=== PATIENT | male | born 1985 | race Caucasian/White ===

== ENCOUNTER 2020-08-22 16:43 | Emergency (ER) | payer OTHER ==
--- NOTE | 2020-08-22 17:15 | EDM.PDOC ---
ED HPI GENERAL MEDICAL PROBLEM - General Chief Complaint: Laceration Stated Complaint: CUT R RING FINGER Time Seen by Provider: 08/22/20 17:00 Source of Information: Reports: Patient History Limitations: Reports: No Limitations - History of Present Illness INITIAL COMMENTS - FREE TEXT/NARRATIVE: 34 YO WM PRESENTS TO ER WITH LACERATION TO RIGHT RING FINGER FROM A [employer] AT WORK. PT REPORTS HE ACCIDENTALLY GOT HIS FINGER UNDERNEATH A FIXED EN[employer] IN[employer]CTOR BLADE CAUSING A 4CM LACERATION TO VOLAR SURFACE OF RIGHT RING FINGER. PT DENIES SIGNIFICANT PAIN, NO FUNCTIONAL DEFICIT AND BLEEDING WAS WELL CONTROLLED WITH PRESSURE. Onset: Today Location: Reports: Upper Extremity, Right Quality: Reports: Ache Severity: Mild Improves with: Reports: None Worsens with: Reports: Movement Associated Symptoms: Reports: No Other Symptoms Right Finger-Ring Pain Score (Numeric/FACES): 0 - Related Data Allergies Allergy/AdvReac Type Severity Reaction Status Date / Time No Known Drug Allergies Allergy Other Verified 08/22/20 16:55 Past Medical History HEENT History: Reports: None Cardiovascular History: Reports: None Respiratory History: Reports: None Gastrointestinal History: Reports: None Other Genitourinary History: testicle removed Musculoskeletal History: Reports: None Neurological History: Reports: None Psychiatric History: Reports: None Endocrine/Metabolic History: Reports: None Hematologic History: Reports: None Immunologic History: Reports: None Dermatologic History: Reports: None - Infectious Disease History Infectious Disease History: Reports: Chicken Pox - Past Surgical History Head Surgeries/Procedures: Reports: None Endocrine Surgical History: Reports: None Neurological Surgical History: Reports: None Social & Family History - Family History Family Medical History: No Pertinent Family History - Tobacco Use Tobacco Use Status *Q: Never Tobacco User - Caffeine Use Caffeine Use: Reports: Soda Caffeine Use Comment: 2 times a week - Alcohol Use Days Per Week of Alcohol Use: 3 Number of Drinks Per Day: 6 Total Drinks Per Week: 18 - Recreational Drug Use Recreational Drug Use: No ED ROS GENERAL - Review of Systems Review Of Systems: See Below Constitutional: Reports: No Symptoms Respiratory: Reports: No Symptoms Cardiovascular: Reports: No Symptoms Endocrine: Reports: No Symptoms GI/Abdominal: Reports: No Symptoms : Reports: No Symptoms Musculoskeletal: Reports: No Symptoms Skin: Reports: Wound (4CM LACERATION TO RIGHT RING FINGER) Neurological: Reports: No Symptoms Psychiatric: Reports: No Symptoms Hematologic/Lymphatic: Reports: No Symptoms ED EXAM, SKIN/RASH Exam: See Below Exam Limited By: No Limitations General Appearance: Alert, WD/WN, No Apparent Distress Eye Exam: Bilateral Eye: EOMI, PERRL Head: Atraumatic, Normocephalic Neck: Normal Inspection, Supple, Non-Tender, Full Range of Motion Respiratory/Chest: No Respiratory Distress, Lungs Clear, Normal Breath Sounds, No Accessory Muscle Use, Chest Non-Tender Cardiovascular: Normal Peripheral Pulses, Regular Rate, Rhythm, No Edema, No Gallop, No JVD, No Murmur, No Rub GI/Abdominal: Normal Bowel Sounds, Soft, Non-Tender, No Organomegaly, No Distention, No Abnormal Bruit, No Mass Back Exam: Normal Inspection, Full Range of Motion, NT Extremities: Normal Range of Motion, No Pedal Edema, Normal Capillary Refill Neurological: Alert, Oriented, CN II-XII Intact, Normal Cognition, Normal Gait, Normal Reflexes, No Motor/Sensory Deficits Psychiatric: Normal Affect, Normal Mood Skin: Warm, Dry, Normal Color, No Rash, Wound/Incision (4CM LACERATION TO RIGHT RING FINGER) Location, Skin: Upper Extremity, Right Lymphatic: No Adenopathy ED SKIN PROCEDURES - Laceration/Wound Repair Right Digit - 4th (Ring) Appearance: Superficial, Subcutaneous Distal NVT: Neuro & Vascular Intact Anesthetic Type: Local Local Anesthesia - Lidocaine (Xylocaine): 1% Plain Local Anesthetic Volume: 5cc Skin Prep: Chlorhexidine (Hibiciens), Saline Exploration/Debridement/Repair: Wound Explored Closed with: Sutures Lac/Wound length In cm: 4 Suture Size: 4-0 # of Sutures: 5 Sterile Dressing Applied: Nurse Tetanus Status Addressed: Yes Complications: No Course - Orders/Labs/Meds Orders: Active Orders 24 hr Category Date Time Status Vaccines to be Administered [RC] PER UNIT ROUTINE Care 08/22/20 17:35 Active Meds: Medications Discontinued Medications Generic Name Dose Route Start Last Admin Trade Name Fremoustapha PRN Reason Stop Dose Admin Diphtheria/Tetanus/Acell Pertussis 0.5 ml 08/22/20 17:34 Adacel IM 08/22/20 17:35 .ONCE ONE Lidocaine HCl Confirm 08/22/20 17:18 08/22/20 17:36 Xylocaine 1% Administered 08/22/20 17:19 Not Given Dose 20 ml .ROUTE .STK-MED ONE Lidocaine HCl 10 ml 08/22/20 17:35 08/22/20 17:39 Xylocaine 1% INJECT 08/22/20 17:36 10 ml ONETIME ONE Administration - Radiology Interpretation Free Text/Narrative:: RIGHT HAND XRAY- NAD Departure - Departure Time of Disposition: 17:48 Disposition: Home, Self-Care 01 Condition: Good Clinical Impression: Laceration of right ring finger w/o foreign body w/o damage to nail Qualifiers: Encounter type: initial encounter Qualified Code(s): S61.214A - Laceration without foreign body of right ring finger without damage to nail, initial encounter - Discharge Information Instructions: Sutures, Mercy, or Adhesive Wound Closure, [id number], Laceration Care, Adult Referrals: Elaine Yan MD [Primary Care Provider] - Forms: ED Department Discharge Additional Instructions: 1. DISCHARGE HOME 2. WOUND CARE INSTRUCTIONS GIVEN 3. SUTURE REMOVAL 7-10 DAYS 4. FOLLOW UP AT CLINIC FOR SUTURE REMOVAL OR FURTHER EVALUATION AND TREATMENT 5. RETURN TO ER FOR WORSENING SYMPTOMS - My Orders Last 24 Hours: My Active Orders 08/22/20 17:35 Vaccines to be Administered [RC] PER UNIT ROUTINE - Assessment/Plan Last 24 Hours: My Active Orders 08/22/20 17:35 Vaccines to be Administered [RC] PER UNIT ROUTINE Assessment:: 1. 4CM LACERATION TO RIGHT RING FINGER Plan: 1. DISCHARGE HOME 2. WOUND CARE INSTRUCTIONS GIVEN 3. SUTURE REMOVAL 7-10 DAYS 4. FOLLOW UP AT CLINIC FOR SUTURE REMOVAL OR FURTHER EVALUATION AND TREATMENT 5. RETURN TO ER FOR WORSENING SYMPTOMS
[2020-08-22] MEDS ORDERED: Lidocaine 1% 20 ML MDV ONE (17:18)
[2020-08-22] MEDS ORDERED: Diphtheria,Pertussis(Acell),Tetanus Vaccine 0.5 ML SDV IM ONE (17:34)
[2020-08-22] MEDS ORDERED: Lidocaine 1% 10 ML MDV INJECT ONE (17:35)
--- NOTE | 2020-08-22 17:39 | CR ---
[id number] RAD/RAD Hand Right 3V EXAM: RAD Hand Right 3V CLINICAL DATA: TRAUMA COMPARISON: NO PREVIOUS SIMILAR EXAM IS AVAILABLE. FINDINGS: No fracture or dislocation is seen. There is no radiopaque foreign body in the soft tissues. There is no air in the soft tissues. There is no cortical thickening or periosteal reaction either. IMPRESSION: NEGATIVE PLAIN FILM EXAM. Ac Staley MD 08/22/20 [id number] Thank you for allowing us to participate in the care of your patient.
== END 2020-08-22 18:00 | disposition home or self-care (01) ==
LOC: KA.ED 16:43
DX: S61.214A Laceration without foreign body of right ring finger without damage to nail, initial encounter (principal); Z23 Encounter for immunization; W31.89XA Contact with other specified machinery, initial encounter; Y99.0 Civilian activity done for income or pay
CPT/HCPCS: 12002; 73130; 90471; 90715; 99283; J2001

== ENCOUNTER 2024-01-16 09:32 | Emergency (ER) | payer OTHER ==
[2024-01-16 10:28] LABS: BASOPHILS ABSOLUTE AUTO 0.06 10^3/uL (0.00-0.10); BASOPHILS PERCENT AUTO 0.9 % (0.0-1.0); EOSINOPHILS PERCENT AUTO 1.5 % (1.0-3.0); HEMATOCRIT 47.9 % (40.0-52.0); HEMOGLOBIN 15.7 g/dL (13.0-17.0); IMMATURE GRAN ABSOLUTE AUTO 0.02 10^3/uL (0.00-0.50); IMMATURE GRAN PERCENT AUTO 0.3 % (0.0-5.0); LYMPHOCYTES ABSOLUTE AUTO 1.37 10^3/uL (1.00-4.00); LYMPHOCYTES PERCENT AUTO 20.4 % (20.0-40.0); MEAN CORPUSCULAR HEMOGLOBIN 28.9 pg (27.0-31.0); MEAN CORPUSCULAR HGB CONC 32.8 g/dL (32.0-36.0); MEAN CORPUSCULAR VOLUME 88.1 fL (82.0-92.0); MEAN PLATELET VOLUME 11.2 fL (7.4-10.4); MONOCYTES PERCENT AUTO 11.9 % (2.0-8.0); NEUTROPHILS ABSOLUTE AUTO 4.36 10^3/uL (2.50-7.00); PLATELET COUNT,PLT 229 10^3/uL (150-400); RED BLOOD CELL COUNT 5.44 10^6/uL (4.50-6.00); RED CELL DISTRIBUTION WIDTH 12.8 % (11.5-14.5); WHITE BLOOD CELL COUNT,WBC 6.71 10^3/uL (5.00-10.00)
== END 2024-01-16 12:10 ==
LOC: KA.ED 09:32
DX: M65.88 Other synovitis and tenosynovitis, other site (principal)
CPT/HCPCS: 36415; 73130-LT; 85025; 86140; 99283; 99284